=== PATIENT | female | born 1955 | race Two or more races ===

== ENCOUNTER 2017-02-05 18:32 | Inpatient (IN) | payer OTHER ==
[~2017-02-05] VITALS: Ht 162.6 cm; Wt 75.6 kg
[2017-02-05 20:13] LABS: Basophils # (auto) 0.1 uL; Basophils % (auto) 1.3 % (0.0-2.0); Eosinophils # (auto) 0 uL; Hematocrit 38.9 % (36.0-46.0); Hemoglobin 13.4 g/dL (12.2-16.2); Lymphocytes # (auto) 1.7 uL; Lymphocytes % (auto) 43.3 % (10.0-50.0); Mean Corpuscular Hgb Conc. 34.5 g/dL (32.0-36.0); Mean Corpuscular Volume 81.3 fL (80.0-100.0); Mean Platelet Volume 8.2 fL (6.9-10.8); Monocytes # (auto) 0.3 uL; Monocytes % (auto) 8.3 % (0.0-12.0); Neutrophils # (auto) 1.8 uL; Neutrophils % (auto) 46.1 % (37.0-80.0); Nucleated Red Blood Cells % 0.2 %; Platelet Count (auto) 227 10^3/uL (140-450); Red Cell Distribution Width 16.2 % (11.8-14.3)
[2017-02-05 20:31] LABS: INR 0.98 (0.9-1.15); Partial Thromboplastin Time 31.2 sec (22.64-33.71); Prothrombin Time 10.7 sec (9.37-12.3)
[2017-02-05 20:48] LABS: Albumin 4.1 g/dL (3.4-5.0); BUN/Creatinine Ratio 32.9; Bilirubin, Total 0.4 mg/dL (0.2-1.0); Calcium 8.7 mg/dL (8.5-10.1); Magnesium 2.9 mg/dL (1.6-2.6); Potassium 4.3 mmol/L (3.5-5.1); Total Protein 9.2 g/dL (6.4-8.2)
[2017-02-05 20:51] LABS: B-Type Natriuretic Peptide 13.21 pg/mL (0-100)
[2017-02-05 21:25] LABS: Temperature: 22.7 C (20.0-25.0)
[2017-02-05] MEDS ORDERED: NITROGLYCERIN 0.4 MG SL TAB SL PRN (23:15)
[2017-02-05] MEDS ORDERED: TEMAZEPAM 15 MG CAP PO PRN (23:15)
[2017-02-05] MEDS ORDERED: ACETAMINOPHEN 325 MG TAB PO PRN (23:15)
[2017-02-05] MEDS ORDERED: ONDANSETRON HCL 4 MG/2 ML VIAL IV PRN (23:15)
[2017-02-05] MEDS ORDERED: DEXTROSE (50%) 50ML SYRG IV PRN (23:15)
[2017-02-05] MEDS ORDERED: HYDROcodone-ACET 5/325MG TAB PO PRN (23:15)
[2017-02-05] MEDS ORDERED: MORPHINE SULF INJ 2 MG/ML SYRINGE 1ML IV PRN (23:15)
[2017-02-06] MEDS: ACCU-CHEK COMFORT CURVE STRIP VI SCH ×5 (00:11→22:00)
[2017-02-06] MEDS ORDERED: POTA10SO11 PO (03:05)
[2017-02-06] MEDS ORDERED: METF-370 PO (03:05)
[2017-02-06] MEDS ORDERED: LEVO50TA7 PO (03:05)
[2017-02-06] MEDS ORDERED: MAGN1TAB14 PO (03:05)
[2017-02-06] MEDS ORDERED: LISI40TA PO (03:05)
[2017-02-06] MEDS ORDERED: ISOS60TA24 PO (03:05)
[2017-02-06] MEDS ORDERED: GLIP-115 PO (03:05)
[2017-02-06] MEDS ORDERED: NIFE90TA30 PO (03:05)
[2017-02-06] MEDS ORDERED: ATEN50TA PO (03:05)
[2017-02-06 05:59] LABS: Basophils # (auto) 0 uL; Eosinophils # (auto) 0.1 uL; Eosinophils % (auto) 1.5 % (0.0-7.0); Hematocrit 37.2 % (36.0-46.0); Hemoglobin 12.3 g/dL (12.2-16.2); Lymphocytes # (auto) 1.7 uL; Lymphocytes % (auto) 49.9 % (10.0-50.0); Mean Corpuscular Volume 81.8 fL (80.0-100.0); Mean Platelet Volume 8.6 fL (6.9-10.8); Monocytes # (auto) 0.4 uL; Monocytes % (auto) 11.7 % (0.0-12.0); Neutrophils # (auto) 1.2 uL; Neutrophils % (auto) 35.9 % (37.0-80.0); Nucleated Red Blood Cells % 0.2 %; Platelet Count (auto) 218 10^3/uL (140-450); Red Cell Distribution Width 16.3 % (11.8-14.3); White Blood Cell 3.4 10^3/uL (4.4-10.8)
[2017-02-06] MEDS: InsuLIN REG 1unit/0.01ml Soln (100units/ml) SC SCH ×5 (06:00→22:00)
[2017-02-06 06:04] VITALS: BP 149/78
[2017-02-06 06:23] LABS: Albumin 3.6 g/dL (3.4-5.0); BUN/Creatinine Ratio 28.9; Bilirubin, Total 0.3 mg/dL (0.2-1.0); Calcium 8.1 mg/dL (8.5-10.1); Potassium 3.8 mmol/L (3.5-5.1); Total Protein 8.2 g/dL (6.4-8.2)
[2017-02-06] MEDS: glipiZIDE 5 MG TAB PO SCH ×2 (06:23→17:42)
[2017-02-06] MEDS: LEVOTHYROXINE SODIUM 50 MCG TAB PO SCH (06:23)
[2017-02-06 07:40] VITALS: BP 139/76
[2017-02-06] MEDS: MAGNESIUM OXIDE 400 MG TAB PO SCH (09:46)
[2017-02-06] MEDS: NIFEdipine ER 30 MG TAB PO SCH (09:47)
[2017-02-06] MEDS: ATENOLOL 50 MG TAB PO SCH (09:50)
[2017-02-06] MEDS: FAMOTIDINE 20 MG TAB PO SCH ×2 (09:51→22:30)
[2017-02-06] MEDS: LISINOPRIL 20 MG TAB PO SCH (09:51)
[2017-02-06] MEDS: ENOXAPARIN SOD 40 MG/0.4 ML SYRINGE SC SCH (09:51)
[2017-02-06 12:28] VITALS: BP 127/71
[2017-02-06] MEDS ORDERED: DEXTROSE (50%) 50ML SYRG IV PRN (14:00)
[2017-02-06 17:11] VITALS: BP 149/73
[2017-02-06 22:00] VITALS: BP 123/68
[2017-02-07 05:00] VITALS: BP 122/77
[2017-02-07] MEDS: ACCU-CHEK COMFORT CURVE STRIP VI SCH ×4 (06:30→21:42)
[2017-02-07] MEDS: InsuLIN REG 1unit/0.01ml Soln (100units/ml) SC SCH ×4 (06:30→21:42)
[2017-02-07] MEDS: LEVOTHYROXINE SODIUM 50 MCG TAB PO SCH (06:31)
[2017-02-07] MEDS: glipiZIDE 5 MG TAB PO SCH ×2 (06:31→17:42)
[2017-02-07 08:00] VITALS: BP 122/76
[2017-02-07 08:46] VITALS: BP 125/66
[2017-02-07] MEDS ORDERED: ADENOSINE 64 MG in GIVE UN-DILUTED 0 ML IV ONE (09:00)
[2017-02-07 13:00] VITALS: BP 128/82
[2017-02-07] MEDS: FAMOTIDINE 20 MG TAB PO SCH ×2 (15:54→21:42)
[2017-02-07] MEDS: LISINOPRIL 20 MG TAB PO SCH (15:55)
[2017-02-07] MEDS: ATENOLOL 50 MG TAB PO SCH (15:56)
[2017-02-07] MEDS: MAGNESIUM OXIDE 400 MG TAB PO SCH (15:56)
[2017-02-07] MEDS: NIFEdipine ER 30 MG TAB PO SCH (15:57)
[2017-02-07] MEDS: ENOXAPARIN SOD 40 MG/0.4 ML SYRINGE SC SCH (15:59)
[2017-02-07 17:00] VITALS: BP 127/66
[2017-02-07 22:00] VITALS: BP 133/83
[2017-02-08 05:00] VITALS: BP 146/82
[2017-02-08] MEDS: glipiZIDE 5 MG TAB PO SCH ×2 (06:23→18:30)
[2017-02-08] MEDS: LEVOTHYROXINE SODIUM 50 MCG TAB PO SCH (06:23)
[2017-02-08] MEDS: InsuLIN REG 1unit/0.01ml Soln (100units/ml) SC SCH ×4 (06:24→21:56)
[2017-02-08] MEDS: ACCU-CHEK COMFORT CURVE STRIP VI SCH ×4 (06:25→21:56)
[2017-02-08] MEDS ORDERED: HEPARIN IN NS 1000Units/500mL 0 ML ONE (07:13)
[2017-02-08] MEDS ORDERED: LIDOCAINE 2%HCL (LOCAL ANESTH.) INJ 20ML MDV ONE ×2 (07:13→11:41)
[2017-02-08] MEDS ORDERED: IOHEXOL 350 MG/ML 100ML IJ ONE ×2 (07:13→11:41)
[2017-02-08 08:00] VITALS: BP 152/78
[2017-02-08 08:48] VITALS: BP 152/78
[2017-02-08] MEDS: MAGNESIUM OXIDE 400 MG TAB PO SCH (09:57)
[2017-02-08] MEDS: FAMOTIDINE 20 MG TAB PO SCH ×2 (09:57→21:56)
[2017-02-08] MEDS: NIFEdipine ER 30 MG TAB PO SCH (09:58)
[2017-02-08] MEDS: ATENOLOL 50 MG TAB PO SCH ×2 (09:59→10:00)
[2017-02-08] MEDS: LISINOPRIL 20 MG TAB PO SCH (09:59)
[2017-02-08] MEDS: ENOXAPARIN SOD 40 MG/0.4 ML SYRINGE SC SCH (10:00)
[2017-02-08] MEDS ORDERED: fentaNYL CITRATE 100 MCG/2 ML VL ONE (13:49)
[2017-02-08] MEDS ORDERED: MIDAZOLAM HCL 1MG/1ML-2 ML VIAL ONE (13:49)
[2017-02-08] MEDS ORDERED: SODIUM CHL 0.9% 0 ML ONE (13:50)
[2017-02-08] MEDS ORDERED: ANGIOMAX 250 MG VIAL IV ONE (13:50)
[2017-02-08] MEDS ORDERED: ONDANSETRON HCL 4 MG/2 ML VIAL ONE (13:59)
[2017-02-08 14:03] VITALS: BP 144/79
[2017-02-08 18:14] VITALS: BP 135/71
[2017-02-08 22:00] VITALS: BP 121/73
[2017-02-09 04:57] VITALS: BP 138/77
[2017-02-09] MEDS: glipiZIDE 5 MG TAB PO SCH ×2 (06:16→18:00)
[2017-02-09] MEDS: ACCU-CHEK COMFORT CURVE STRIP VI SCH ×3 (06:18→17:00)
[2017-02-09] MEDS: InsuLIN REG 1unit/0.01ml Soln (100units/ml) SC SCH ×3 (06:18→17:00)
[2017-02-09] MEDS: LEVOTHYROXINE SODIUM 50 MCG TAB PO SCH (06:18)
[2017-02-09 07:22] VITALS: BP 148/89
[2017-02-09] MEDS: ENOXAPARIN SOD 40 MG/0.4 ML SYRINGE SC SCH (09:55)
[2017-02-09] MEDS: FAMOTIDINE 20 MG TAB PO SCH (09:56)
[2017-02-09] MEDS: LISINOPRIL 20 MG TAB PO SCH (09:56)
[2017-02-09] MEDS: MAGNESIUM OXIDE 400 MG TAB PO SCH (09:56)
[2017-02-09] MEDS: NIFEdipine ER 30 MG TAB PO SCH (09:57)
[2017-02-09 11:45] VITALS: BP 130/74
[2017-02-09 16:20] VITALS: BP 151/80
[2017-02-09 18:20] VITALS: BP 132/78
== END 2017-02-09 18:30 | DRG 287 ==
LOC: ER 18:39 → TELE 18:40 → TELE-WESTW 02-06 01:24
PROVIDERS: ADMIT Nurse Practitioner; ATTEND Internal Medicine
PROC: 4A023N7 Measurement of Cardiac Sampling and Pressure, Left Heart, Percutaneous Approach (ICD-10-PCS; principal; 2017-02-08)
PROC: B2151ZZ Fluoroscopy of Left Heart using Low Osmolar Contrast (ICD-10-PCS; 2017-02-08)
PROC: B2111ZZ Fluoroscopy of Multiple Coronary Arteries using Low Osmolar Contrast (ICD-10-PCS; 2017-02-08)
PROC: B41J1ZZ Fluoroscopy of Other Lower Arteries using Low Osmolar Contrast (ICD-10-PCS; 2017-02-08)
DX: R07.89 Other chest pain (principal); I24.9 Acute ischemic heart disease, unspecified; I27.2 Other secondary pulmonary hypertension; I11.9 Hypertensive heart disease without heart failure; I48.2 Chronic atrial fibrillation; E03.9 Hypothyroidism, unspecified; I48.0 Paroxysmal atrial fibrillation; E05.00 Thyrotoxicosis with diffuse goiter without thyrotoxic crisis or storm; E11.9 Type 2 diabetes mellitus without complications; I25.2 Old myocardial infarction; Z83.3 Family history of diabetes mellitus; Z82.49 Family history of ischemic heart disease and other diseases of the circulatory system; Z90.710 Acquired absence of both cervix and uterus; Z90.49 Acquired absence of other specified parts of digestive tract; Z88.8 Allergy status to other drugs, medicaments and biological substances
CPT/HCPCS: 36415; 71020; 78452; 80053; 80061; 82962; 83036; 83735; 83880; 84443; 84484; 85025; 85379; 85610; 85730; 87081; 93005; 93017; 93306; 94761; 99152; 99153; J0153; J2250; J2405

== ENCOUNTER 2017-08-11 17:25 | Inpatient (IN) | payer OTHER ==
[~2017-08-11] VITALS: Ht 162.6 cm; Wt 76.4 kg
[~2017-08-11 17:25] MED LIST: ATEN50TA PO; GLIP-115 PO; ISOS60TA24 PO; LEVO50TA7 PO; LISI40TA PO; MAGN1TAB14 PO; METF-370 PO; NIFE90TA30 PO; POTA10SO11 PO
[2017-08-11 19:11] LABS: Basophils # (auto) 0 uL; Basophils % (auto) 0.7 % (0.0-2.0); Eosinophils # (auto) 0 uL; Lymphocytes # (auto) 1.8 uL; White Blood Cell 3.9 10^3/uL (4.4-10.8)
[2017-08-11 19:12] LABS: Eosinophils % (auto) 0.6 % (0.0-7.0); Hematocrit 38.4 % (36.0-46.0); Hemoglobin 12.8 g/dL (12.2-16.2); Lymphocytes % (auto) 46.8 % (10.0-50.0); Mean Corpuscular Hgb Conc. 33.3 g/dL (32.0-36.0); Mean Corpuscular Volume 81.1 fL (80.0-100.0); Monocytes # (auto) 0.4 uL; Monocytes % (auto) 9.3 % (0.0-12.0); Neutrophils # (auto) 1.7 uL; Neutrophils % (auto) 42.6 % (37.0-80.0); Nucleated Red Blood Cells % 0.4 %; Platelet Count (auto) 236 10^3/uL (140-450); Red Blood Cells 4.74 10^6/uL (4.0-5.20); Red Cell Distribution Width 16.2 % (11.8-14.3)
[2017-08-11 19:25] LABS: Alanine Aminotransferase 34 U/L (13-56); Albumin 4.1 g/dL (3.4-5.0); Alkaline Phosphatase 80 U/L (45-117); Anion Gap 8 (5-15); Aspartate Aminotransferase 27 U/L (15-37); BUN/Creatinine Ratio 20.7; Bilirubin, Total 0.3 mg/dL (0.2-1.0); Blood Urea Nitrogen 18 mg/dL (7-18); Calcium 8.4 mg/dL (8.5-10.1); Carbon Dioxide 26 mmol/L (21-32); Chloride 107 mmol/L (98-107); GFR African American 85 mL/min; GFR Non-African American 70 mL/min; Glucose 104 mg/dL (74-106); Magnesium 2.6 mg/dL (1.6-2.6); Potassium 3.5 mmol/L (3.5-5.1); Sodium 141 mmol/L (136-145); Total Protein 8.9 g/dL (6.4-8.2)
[2017-08-12 01:41] LABS: Urine Bacteria NONE SEEN /hpf (None Seen); Urine Blood Negative /uL (Negative); Urine WBC <1 /hpf (0 - 5)
[2017-08-12 01:52] LABS: INR 1.08 (0.9-1.15); Partial Thromboplastin Time 32.7 sec (22.64-33.71); Prothrombin Time 11.8 sec (9.37-12.3)
[2017-08-12 01:56] LABS: Alcohol, Urine < 3.0 mg/dL (0-5); Amphetamine Screen, Urine NEGATIVE (NEGATIVE); Barbiturate Scree,Urine NEGATIVE (NEGATIVE); Benzodiazephine Screen, Urine NEGATIVE (NEGATIVE); Cannabinoid Screen, Urine NEGATIVE (NEGATIVE); Cocaine Screen, Urine NEGATIVE (NEGATIVE); Opiate Scree,Urine NEGATIVE (NEGATIVE); Phencyclidine Screen, Urine NEGATIVE (NEGATIVE)
[2017-08-12] MEDS ORDERED: NITROGLYCERIN 0.4 MG SL TAB SL PRN (04:45)
[2017-08-12] MEDS ORDERED: MORPHINE SULFATE 4 MG/ML SYR/VIAL IV PRN (04:45)
[2017-08-12 08:46] VITALS: BP 142/61
[2017-08-12] MEDS: ASPirin-EC 81 mg tab PO SCH (10:03)
[2017-08-12] MEDS: NITROGLYCERIN 2% OINT 1GM PKG TD SCH (10:04)
[2017-08-12] MEDS ORDERED: traMADol HCL 50 MG TAB PO PRN (12:30)
[2017-08-12 12:43] VITALS: BP 130/59
[2017-08-12] MEDS: METOPROLOL SUCCINATE XL 50 MG TAB PO SCH (14:22)
[2017-08-12 16:28] VITALS: BP 146/80
[2017-08-12] MEDS: NIFEdipine ER 30 MG TAB PO SCH (17:22)
[2017-08-12 20:00] VITALS: BP 148/73
[2017-08-12 21:30] VITALS: BP 148/73
[2017-08-13] MEDS ORDERED: IBUPROFEN 800 MG TAB PO PRN (01:30)
[2017-08-13 05:00] VITALS: BP 137/65
[2017-08-13 08:00] VITALS: BP 136/78
[2017-08-13 08:23] VITALS: BP 136/78
[2017-08-13] MEDS ORDERED: ADENOSINE 63 MG in GIVE UN-DILUTED 0 ML IV STA (08:28)
[2017-08-13] MEDS: METOPROLOL SUCCINATE XL 50 MG TAB PO SCH (10:00)
[2017-08-13 10:59] VITALS: BP 139/85
[2017-08-13] MEDS: NIFEdipine ER 30 MG TAB PO SCH (12:58)
[2017-08-13] MEDS: ASPirin-EC 81 mg tab PO SCH (12:58)
[2017-08-13] MEDS: ISOSORBIDE MONONITRATE 60 MG TAB PO SCH (12:58)
[2017-08-13] MEDS: NITROGLYCERIN 2% OINT 1GM PKG TD SCH (12:59)
[2017-08-13 13:00] VITALS: BP 149/83
[2017-08-13 17:14] VITALS: BP 132/74
[2017-08-14 05:13] VITALS: BP 126/65
[2017-08-14 08:00] VITALS: BP 118/66
[2017-08-14 08:40] VITALS: BP 118/66
[2017-08-14] MEDS: NIFEdipine ER 30 MG TAB PO SCH (09:36)
[2017-08-14] MEDS: METOPROLOL SUCCINATE XL 50 MG TAB PO SCH ×2 (09:37→09:52)
[2017-08-14] MEDS: NITROGLYCERIN 2% OINT 1GM PKG TD SCH (09:39)
[2017-08-14] MEDS: ISOSORBIDE MONONITRATE 60 MG TAB PO SCH (09:39)
[2017-08-14] MEDS: ASPirin-EC 81 mg tab PO SCH (09:39)
[2017-08-14 11:25] VITALS: BP 117/61
== END 2017-08-14 18:00 | DRG 303 ==
LOC: EDBD 17:25 → ER 17:25 → EDUNIT# 17:25 → TELE 17:26 → EEVIPCON 17:26 → TELE-EAST 08-12 09:57
PROVIDERS: ADMIT Internal Medicine; ATTEND Internal Medicine
DX: I25.119 Atherosclerotic heart disease of native coronary artery with unspecified angina pectoris (principal); I48.91 Unspecified atrial fibrillation; E03.9 Hypothyroidism, unspecified; E11.9 Type 2 diabetes mellitus without complications; I10 Essential (primary) hypertension; Z82.49 Family history of ischemic heart disease and other diseases of the circulatory system; Z83.3 Family history of diabetes mellitus; Z90.710 Acquired absence of both cervix and uterus; Z90.49 Acquired absence of other specified parts of digestive tract; I25.2 Old myocardial infarction
CPT/HCPCS: 36415; 71046; 80053; 80307; 81001; 82962; 83735; 84484; 85025; 85379; 85610; 85730; 93005; 93017; J0153

== ENCOUNTER 2017-12-10 23:06 | Emergency (ER) | payer OTHER ==
[~2017-12-10] VITALS: Ht 162.6 cm; Wt 63.5 kg
[~2017-12-10 23:06] MED LIST changes: -METF-370 PO
[2017-12-10 23:24] VITALS: BP 105/53
[2017-12-10 23:53] LABS: Basophils # (auto) 0 uL; Basophils % (auto) 0.8 % (0.0-2.0); Eosinophils # (auto) 0.1 uL; Eosinophils % (auto) 1.8 % (0.0-7.0); Hematocrit 35.5 % (36.0-46.0); Hemoglobin 11.9 g/dL (12.2-16.2); Lymphocytes % (auto) 43.9 % (10.0-50.0); Mean Corpuscular Hemoglobin 27.2 pg (28.0-32.0); Mean Corpuscular Hgb Conc. 33.4 g/dL (32.0-36.0); Mean Corpuscular Volume 81.4 fL (80.0-100.0); Monocytes # (auto) 0.5 uL; Monocytes % (auto) 10.9 % (0.0-12.0); Neutrophils # (auto) 1.9 uL; Neutrophils % (auto) 42.6 % (37.0-80.0); Nucleated Red Blood Cells % 0.2 %; Platelet Count (auto) 208 10^3/uL (140-450); Red Blood Cells 4.36 10^6/uL (4.0-5.20); White Blood Cell 4.5 10^3/uL (4.4-10.8)
[2017-12-11 00:06] LABS: INR 1.05 (0.9-1.15); Prothrombin Time 11.2 sec (9.27-12.13)
[2017-12-11 00:09] LABS: Albumin 3.7 g/dL (3.4-5.0); BUN/Creatinine Ratio 29.3; Calcium 8.1 mg/dL (8.5-10.1); Magnesium 2.5 mg/dL (1.6-2.6); Potassium 3.9 mmol/L (3.5-5.1)
[2017-12-11 00:14] LABS: Bilirubin, Total 0.2 mg/dL (0.2-1.0); Total Protein 8.1 g/dL (6.4-8.2)
== END 2017-12-11 03:00 | disposition left against medical advice (07) ==
LOC: EDBD 23:06 → ER 23:12 → EEVIPCON 23:12 → ER 12-11 03:00
DX: R07.9 Chest pain, unspecified (principal); Z53.21 Procedure and treatment not carried out due to patient leaving prior to being seen by health care provider
CPT/HCPCS: 36415; 71045; 80053; 83735; 83880; 84443; 84484; 85025; 85610; 85730; 93005

== ENCOUNTER → 2017-12-12 | Outpatient (CLI) | payer OTHER ==
[2017-12-12 08:29] LABS: Potassium 4.3 mmol/L (3.5-5.1); Sodium 138 mmol/L (136-145)
[2017-12-12 08:30] LABS: Alanine Aminotransferase 36 U/L (13-56); Alkaline Phosphatase 71 U/L (45-117); Anion Gap 9 (5-15); Aspartate Aminotransferase 26 U/L (15-37); BUN/Creatinine Ratio 26.7; Bilirubin, Total 0.2 mg/dL (0.2-1.0); Blood Urea Nitrogen 31 mg/dL (7-18); Calcium 8.4 mg/dL (8.5-10.1); Carbon Dioxide 23 mmol/L (21-32); Chloride 106 mmol/L (98-107); Cholesterol 180 mg/dL (< 200); GFR African American 61 mL/min; GFR Non-African American 50 mL/min; Glucose 88 mg/dL (74-106); Phosphorus 3.8 mg/dL (2.5-4.90); Total Protein 8.4 g/dL (6.4-8.2); Triglycerides 136 mg/dL (< 150)
[2017-12-12 08:31] LABS: Creatine Kinase IFCC 166 U/L (26-192); HDL Cholesterol 65 mg/dL (40-59); LDL Cholesterol 100 mg/dL (< 100); Magnesium 2.9 mg/dL (1.6-2.6)
[2017-12-12 08:37] LABS: Basophils # (auto) 0 uL; Basophils % (auto) 0.4 % (0.0-2.0); Eosinophils # (auto) 0.1 uL; Eosinophils % (auto) 2.2 % (0.0-7.0); Hematocrit 35.6 % (36.0-46.0); Hemoglobin 11.8 g/dL (12.2-16.2); Lymphocytes # (auto) 1.6 uL; Lymphocytes % (auto) 48.8 % (10.0-50.0); Mean Corpuscular Hgb Conc. 33.2 g/dL (32.0-36.0); Mean Corpuscular Volume 81.3 fL (80.0-100.0); Monocytes # (auto) 0.3 uL; Neutrophils # (auto) 1.2 uL; Neutrophils % (auto) 38.6 % (37.0-80.0); Nucleated Red Blood Cells % 0.1 %; Platelet Count (auto) 218 10^3/uL (140-450); Red Blood Cells 4.38 10^6/uL (4.0-5.20); Red Cell Distribution Width 15.9 % (11.8-14.3); White Blood Cell 3.2 10^3/uL (4.4-10.8)
[2017-12-12 08:38] LABS: Prothrombin Time 10.7 sec (9.27-12.13)
[2017-12-12 08:39] LABS: Partial Thromboplastin Time 29.7 sec (23.78-33.04)
== END | disposition home or self-care (01) ==
LOC: LAB 06:51
DX: R07.9 Chest pain, unspecified (principal)
CPT/HCPCS: 36415; 80053; 80061; 82550; 82553; 83735; 83880; 84100; 84436; 84443; 84480; 84484; 85025; 85379; 85610; 85730

== ENCOUNTER 2018-04-23 22:37 | Emergency (ER) | payer OTHER ==
[~2018-04-23] VITALS: Ht 165.1 cm; Wt 61.2 kg
[~2018-04-23 22:37] MED LIST changes: +ATEN-60 PO; -ATEN50TA PO; +FERR-20 PO; +FOLI1TAB6 PO; +FURO20TA PO; -GLIP-115 PO; +GLIP2.5T28 PO; +IBUP800T24 PO; +LEVO25TA6 PO; -LEVO50TA7 PO; +LISI10TA6 PO; -LISI40TA PO; +METF-370 PO; +NIF30XLT PO; -NIFE90TA30 PO; +NITR0.4S29 SL; +POTA-180 PO; -POTA10SO11 PO
[2018-04-23 23:35] LABS: Basophils # (auto) 0 uL; Basophils % (auto) 1.1 % (0.0-2.0); Eosinophils # (auto) 0 uL; Eosinophils % (auto) 0.5 % (0.0-7.0); Hematocrit 38.4 % (36.0-46.0); Hemoglobin 12.6 g/dL (12.2-16.2); Lymphocytes # (auto) 2.2 uL; Lymphocytes % (auto) 49.4 % (10.0-50.0); Mean Corpuscular Hemoglobin 27.1 pg (28.0-32.0); Mean Corpuscular Hgb Conc. 32.8 g/dL (32.0-36.0); Mean Corpuscular Volume 82.7 fL (80.0-100.0); Monocytes # (auto) 0.3 uL; Monocytes % (auto) 7.1 % (0.0-12.0); Neutrophils # (auto) 1.9 uL; Neutrophils % (auto) 41.9 % (37.0-80.0); Nucleated Red Blood Cells % 0.2 %; Platelet Count (auto) 220 10^3/uL (140-450); Red Blood Cells 4.64 10^6/uL (4.0-5.20); White Blood Cell 4.4 10^3/uL (4.4-10.8)
[2018-04-23 23:36] LABS: Urine Bacteria NONE SEEN /hpf (None Seen); Urine Blood Negative /uL (Negative); Urine Mucus FEW (None Seen); Urine Specific Gravity 1.004 (1.001-1.035); Urine WBC <1 /hpf (0 - 5)
[2018-04-23 23:46] LABS: BUN/Creatinine Ratio 25.9; Calcium 8.5 mg/dL (8.5-10.1); Magnesium 2.2 mg/dL (1.6-2.6); Potassium 3.1 mmol/L (3.5-5.1)
[2018-04-23 23:51] LABS: INR 0.96 (0.9-1.15); Partial Thromboplastin Time 30.6 sec (23.78-33.04); Prothrombin Time 10.3 sec (9.27-12.13)
[2018-04-23 23:54] LABS: Bilirubin, Total 0.3 mg/dL (0.2-1.0); Total Protein 8.9 g/dL (6.4-8.2)
[2018-04-24] MEDS ORDERED: POTASSIUM CHL 20 Meq TABLET PO ONE (03:00)
[2018-04-24 03:04] VITALS: BP 148/67
== END 2018-04-24 03:34 | disposition home or self-care (01) ==
LOC: EDBD 22:37 → EDUNIT# 22:38 → ER 22:42
DX: R00.2 Palpitations (principal); E87.6 Hypokalemia; E86.0 Dehydration; E03.9 Hypothyroidism, unspecified; I48.91 Unspecified atrial fibrillation; E11.9 Type 2 diabetes mellitus without complications; I11.0 Hypertensive heart disease with heart failure; I50.9 Heart failure, unspecified; E07.9 Disorder of thyroid, unspecified; I25.2 Old myocardial infarction; Z90.710 Acquired absence of both cervix and uterus; Z88.5 Allergy status to narcotic agent; Z88.8 Allergy status to other drugs, medicaments and biological substances; Z79.84 Long term (current) use of oral hypoglycemic drugs; Z79.899 Other long term (current) drug therapy; Z95.0 Presence of cardiac pacemaker
CPT/HCPCS: 36415; 71045; 80053; 81001; 83735; 83880; 84443; 84484; 85025; 85610; 85730; 93005; 94761

== ENCOUNTER 2018-08-09 16:38 | Inpatient (IN) | payer OTHER ==
[~2018-08-09] VITALS: Ht 162.6 cm; Wt 77.6 kg
[~2018-08-09 16:38] MED LIST changes: -IBUP800T24 PO
[2018-08-09] MEDS ORDERED: SODIUM CHLORIDE 0.9% 1,000 ML IV ONE (16:55)
[2018-08-09] MEDS ORDERED: ASPirin 81 mg TAB PO ONE (17:00)
[2018-08-09 19:22] LABS: INR 0.94 (0.9-1.15); Partial Thromboplastin Time 30.9 sec (23.78-33.04); Prothrombin Time 10.1 sec (9.27-12.13)
[2018-08-09 19:24] LABS: Albumin 3.8 g/dL (3.4-5.0); Basophils # (auto) 0 uL; Basophils % (auto) 0.6 % (0.0-2.0); Calcium 8.5 mg/dL (8.5-10.1); Eosinophils # (auto) 0 uL; Eosinophils % (auto) 0.5 % (0.0-7.0); Hematocrit 37.3 % (36.0-46.0); Hemoglobin 12.2 g/dL (12.2-16.2); Lymphocytes # (auto) 1.7 uL; Magnesium 2.4 mg/dL (1.6-2.6); Mean Corpuscular Hemoglobin 26.7 pg (28.0-32.0); Mean Corpuscular Hgb Conc. 32.8 g/dL (32.0-36.0); Mean Corpuscular Volume 81.2 fL (80.0-100.0); Monocytes # (auto) 0.4 uL; Monocytes % (auto) 9.3 % (0.0-12.0); Neutrophils # (auto) 1.7 uL; Neutrophils % (auto) 45.6 % (37.0-80.0); Nucleated Red Blood Cells % 0.1 %; Platelet Count (auto) 225 10^3/uL (140-450); Potassium 3.2 mmol/L (3.5-5.1); Red Blood Cells 4.59 10^6/uL (4.0-5.20); Red Cell Distribution Width 16.5 % (11.8-14.3); White Blood Cell 3.8 10^3/uL (4.4-10.8)
[2018-08-09 19:29] LABS: BUN/Creatinine Ratio 19.1; Bilirubin, Total 0.3 mg/dL (0.2-1.0); Total Protein 8.7 g/dL (6.4-8.2)
[2018-08-09 21:17] LABS: Urine Bacteria FEW /hpf (None Seen); Urine Blood Negative /uL (Negative); Urine Specific Gravity 1.006 (1.001-1.035); Urine WBC 1 /hpf (0 - 5)
[2018-08-10] VITALS (7 sets, daily range): BP systolic 139–157; BP diastolic 72–92
[2018-08-10] MEDS ORDERED: MORPHINE SULF INJ 2 MG/ML SYRINGE 1ML IV PRN (00:45)
[2018-08-10] MEDS ORDERED: NITROGLYCERIN 0.4 MG SL TAB SL PRN (00:45)
--- NOTE | 2018-08-10 04:00 | NUR ---
AXOX4, RESTING IN BED. RECEIVED PATIENT WITHOUT CHEST PAIN 0/10, BUT SHE REPORTS BILATERAL KNEE PAIN OF 5. PATIENT NEEDS ASSISTANCE TO USE THE BEDSIDE COMMODE. BED LOCKED IN LOWEST POSITION, SIDE RAILS UP X2, CALL LIGHT WITHIN REACH, AND ALARM BED ON FOR PATIENT SAFETY. PATIENT HAS IV 20 GAUGE ON HER LEFT ARM, IT WAS INSERTED ON 08/09/2018 INTACT, SKIN IS INTACT, NO OPEN WOUNDS, LBM: 08/09/2018. WILL CONTINUE TO MONITOR.
--- NOTE | 2018-08-10 04:00 | NUR ---
CALLED TO DR. FUENTES AND MADE A REQUEST FOR MEDICATION ORDERS FOR PATIENT 237 A. DID NOT RECEIVE RETURN PAGE.
--- NOTE | 2018-08-10 06:25 | NUR ---
CALLED DR. FUENTES TO REQUEST MEDICATION ORDERS FOR PATIENT 237 A. DID NOT RECEIVED ANSWER BACK.
--- NOTE | 2018-08-10 08:00 | NUR ---
ASSESSMENT NOTE PT IS ALERT ORIENTED X4, RESTING IN BED COMFORTABLY. 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
--- NOTE | 2018-08-10 13:30 | NUR ---
DR FUENTES AT BED SIDE FOLLOWING UP ON PT.
--- NOTE | 2018-08-10 14:15 | NUR ---
[facility] TO BRING A WALKER FOR PT.
[2018-08-10 16:19] LABS: BUN/Creatinine Ratio 15.9; Calcium 8.5 mg/dL (8.5-10.1); Potassium 3.4 mmol/L (3.5-5.1)
--- NOTE | 2018-08-10 16:36 | NUR ---
PAGE DR FUENTES PT'S BLOOD PRESSURE IS 157/[address] FUENTES IN ORDER TO START THE SCHEDULE DOSE TOMORROW FOR TODAY MESSAGE LEFT WITH MARGE
[2018-08-10] MEDS ORDERED: LISINOPRIL 10 MG TAB PO ONE (17:00)
[2018-08-10] MEDS ORDERED: NIFEdipine ER 30 MG TAB PO ONE (17:00)
[2018-08-10] MEDS: metFORMIN HYDROCHLORIDE 500 MG TAB PO SCH (18:00)
--- NOTE | 2018-08-10 18:21 | NUR ---
PT CONTINUE STABLE, USE THE BED SIDE COMMODE NEEDED, USE THE FRONT WHEEL WALKER NEEDED, CONTINUE MONITORING.
--- NOTE | 2018-08-10 19:30 | NUR ---
A&OX4, RESTING ON BED. PATIENT WAS FOUND ON HER BED. NO REPORT PAIN AT THIS TIME. PATIENT NEEDS MEDIUM ASSISTANCE TO USE BEDSIDE COMMODE. BED LOCKED IN LOWEST POSITION, SIDE RAILS UP X2, CALL LIGHT WITHIN REACH, AND BED ALARM ON FOR PATIENT SAFETY. NO OPEN WOUNDS PRESENT. WILL CONTINUE TO MONITOR.
--- NOTE | 2018-08-10 19:45 | NUR ---
Dr. Christopher Burris at bedside for cardio evaluation.
[2018-08-10] MEDS ORDERED: DEXTROSE (50%) 50ML SYRG IV PRN (20:15)
[2018-08-10] MEDS: ACCU-CHEK COMFORT CURVE STRIP VI SCH (21:10)
[2018-08-10] MEDS: InsuLIN REG 1unit/0.01ml Soln (100units/ml) SC SCH (22:00)
[2018-08-11 05:00] VITALS: BP 143/88
[2018-08-11] MEDS ORDERED: LEVOTHYROXINE SODIUM 25 MCG TAB PO SCH (07:00)
[2018-08-11] MEDS: InsuLIN REG 1unit/0.01ml Soln (100units/ml) SC SCH ×2 (07:00→11:30)
[2018-08-11] MEDS: metFORMIN HYDROCHLORIDE 500 MG TAB PO SCH (07:00)
[2018-08-11] MEDS: ACCU-CHEK COMFORT CURVE STRIP VI SCH ×2 (07:00→11:30)
[2018-08-11 08:00] VITALS: BP 132/83
--- NOTE | 2018-08-11 08:00 | NUR ---
RECEIVED PT RESTING COMFORTABLY, CALL LIGHT WITHIN REACH, GUARD AT BED SIDE, PT DENIES CHEST PAIN AT THIS TIME, WILL CONTINUE TO MONITOR PT.
--- NOTE | 2018-08-11 08:35 | NUR ---
CALLED [facility] AT [phone] FOR PT'S PACEMAKER TO BE INTERROGATED.
[2018-08-11 08:42] VITALS: BP 132/83
[2018-08-11] MEDS ORDERED: NIFEdipine ER 30 MG TAB PO SCH (10:00)
[2018-08-11] MEDS ORDERED: LISINOPRIL 10 MG TAB PO SCH (10:00)
[2018-08-11] MEDS ORDERED: ENOXAPARIN SOD 30 MG/0.3 ML SYRINGE SC SCH (10:00)
[2018-08-11 10:49] LABS: Free T3 5.69 pg/mL (2.3-4.2); Free T4 (Free Thyroxine) 0.87 ng/dL (0.89-1.76)
[2018-08-11 13:00] VITALS: BP 127/66
[2018-08-11] MEDS ORDERED: DIL120C PO (13:02)
[2018-08-11 14:46] VITALS: BP 127/66
[2018-08-11] MEDS ORDERED: INFLUENZA QUAD 2018-2019 0.5 ML SYRG IM ONE (15:15)
[2018-08-11] MEDS ORDERED: PNEUMOCOCCAL VACC POLYS 25 MCG/0.5 ML VIAL IM ONE (15:15)
--- NOTE | 2018-08-11 16:05 | NUR ---
Discharge instructions given as ordered. Encourage to follow up with PMD as instructed. All questions and concerns addressed. Patient verbalized understanding. Discharge instructions paperwork and prescription given to guard. Medication reconciliation form completed and copy given to patient. No home medications held in Pharmacy, and needed vaccines given. IV removed with catheter intact, pressure dressing applied. Telemetry unit returned to [facility].
--- NOTE | 2018-08-11 16:20 | NUR ---
Patient taken to vehicle via wheelchair with all personal belongings, accompanied by staff and guard dance hall member. No distress noted at time of departure.
[2018-08-12] MEDS ORDERED: DILTIAZEM HCL 120MG ER CAP PO SCH (10:00)
== END 2018-08-11 16:15 | DRG 310 ==
LOC: EDBD 16:38 → EEVIPCON 16:43 → ER 16:43 → TELE 08-10 00:42 → TELE-EAST 08-10 01:57
PROVIDERS: ADMIT Nurse Practitioner Family; ATTEND Internal Medicine
PROC: 4B02XSZ Measurement of Cardiac Pacemaker, External Approach (ICD-10-PCS; principal; 2018-08-11)
DX: I47.1 Supraventricular tachycardia (principal); I47.2 Ventricular tachycardia; I48.91 Unspecified atrial fibrillation; E03.9 Hypothyroidism, unspecified; E11.9 Type 2 diabetes mellitus without complications; I11.0 Hypertensive heart disease with heart failure; R55 Syncope and collapse; I27.20 Pulmonary hypertension, unspecified; I50.9 Heart failure, unspecified; R07.89 Other chest pain; Z82.49 Family history of ischemic heart disease and other diseases of the circulatory system; Z83.3 Family history of diabetes mellitus; Z90.710 Acquired absence of both cervix and uterus; Z95.0 Presence of cardiac pacemaker; Z88.8 Allergy status to other drugs, medicaments and biological substances; Z88.5 Allergy status to narcotic agent; Z90.49 Acquired absence of other specified parts of digestive tract; Z23 Encounter for immunization
CPT/HCPCS: 36415; 71046; 80048; 80053; 81001; 82962; 83735; 83880; 84439; 84443; 84481; 84484; 85025; 85379; 85610; 85730; 90674; 93005; 94761; 96360; G0378

== ENCOUNTER → 2018-09-17 | Outpatient (CLI) | payer OTHER ==
[~2018-09-17] MED LIST changes: +DIL120C PO
== END | disposition home or self-care (01) ==
LOC: US 10:41
DX: E04.2 Nontoxic multinodular goiter (principal)
CPT/HCPCS: 76536

== ENCOUNTER 2018-11-01 21:10 | Emergency (ER) | payer OTHER ==
[~2018-11-01] VITALS: Ht 165.1 cm; Wt 63.5 kg
[2018-11-01 21:42] LABS: Urine Bacteria NONE SEEN /hpf (None Seen); Urine Blood 2+ /uL (Negative); Urine Mucus FEW (None Seen); Urine Specific Gravity 1.002 (1.001-1.035); Urine WBC 1 /hpf (0 - 5)
[2018-11-01 21:42] LABS: Basophils # (auto) 0 uL; Eosinophils # (auto) 0 uL; Eosinophils % (auto) 0.4 % (0.0-7.0); Monocytes # (auto) 0.5 uL
[2018-11-01 21:44] LABS: Basophils % (auto) 0.9 % (0.0-2.0); Hematocrit 37.8 % (36.0-46.0); Hemoglobin 12.3 g/dL (12.2-16.2); Lymphocytes # (auto) 1.9 uL; Lymphocytes % (auto) 37.1 % (10.0-50.0); Mean Corpuscular Hemoglobin 26.5 pg (28.0-32.0); Mean Corpuscular Hgb Conc. 32.7 g/dL (32.0-36.0); Mean Corpuscular Volume 81.2 fL (80.0-100.0); Monocytes % (auto) 10.4 % (0.0-12.0); Neutrophils # (auto) 2.7 uL; Neutrophils % (auto) 51.2 % (37.0-80.0); Nucleated Red Blood Cells % 0.2 %; Platelet Count (auto) 229 10^3/uL (140-450); Red Blood Cells 4.65 10^6/uL (4.0-5.20); Red Cell Distribution Width 15.3 % (11.8-14.3); White Blood Cell 5.2 10^3/uL (4.4-10.8)
[2018-11-01 22:02] LABS: Calcium 9.1 mg/dL (8.5-10.1); Potassium 3.1 mmol/L (3.5-5.1)
[2018-11-01 22:06] LABS: BUN/Creatinine Ratio 21.8; Bilirubin, Total 0.3 mg/dL (0.2-1.0); Total Protein 8.7 g/dL (6.4-8.2)
[2018-11-01] MEDS ORDERED: SODIUM CHLORIDE 0.9% 1,000 ML IV ONE (23:45)
[2018-11-02 02:52] VITALS: BP 146/96
== END 2018-11-02 02:55 | disposition home or self-care (01) ==
LOC: ER 21:15 → EEVIPCON 21:15 → ER 11-02 02:55
DX: R31.9 Hematuria, unspecified (principal); N13.30 Unspecified hydronephrosis; I11.0 Hypertensive heart disease with heart failure; I50.9 Heart failure, unspecified; I48.91 Unspecified atrial fibrillation; I25.2 Old myocardial infarction; E11.9 Type 2 diabetes mellitus without complications; Z95.0 Presence of cardiac pacemaker; Z90.49 Acquired absence of other specified parts of digestive tract; Z90.710 Acquired absence of both cervix and uterus; Z88.5 Allergy status to narcotic agent; Z88.8 Allergy status to other drugs, medicaments and biological substances; Z79.899 Other long term (current) drug therapy
CPT/HCPCS: 36415; 74176; 80053; 81001; 85025; 99284; J7030

== ENCOUNTER 2019-02-26 23:40 | Emergency (ER) | payer OTHER ==
[~2019-02-26] VITALS: Ht 162.6 cm; Wt 63.5 kg
[~2019-02-26 23:40] MED LIST changes: -DIL120C PO; +DILT120C12 PO; +FURO1TAB33 PO; -FURO20TA PO; -NIF30XLT PO; +NIFE30TA77 PO
[2019-02-27 01:05] LABS: Basophils # (auto) 0 uL; Eosinophils # (auto) 0 uL; Mean Corpuscular Hemoglobin 26.9 pg (28.0-32.0); Monocytes # (auto) 0.3 uL; White Blood Cell 4.2 10^3/uL (4.4-10.8)
[2019-02-27 01:06] LABS: Eosinophils % (auto) 1.1 % (0.0-7.0); Hematocrit 35.5 % (36.0-46.0); Hemoglobin 11.6 g/dL (12.2-16.2); Lymphocytes # (auto) 1.9 uL; Lymphocytes % (auto) 46.9 % (10.0-50.0); Mean Corpuscular Hgb Conc. 32.6 g/dL (32.0-36.0); Mean Corpuscular Volume 82.3 fL (80.0-100.0); Monocytes % (auto) 7.8 % (0.0-12.0); Neutrophils # (auto) 1.8 uL; Neutrophils % (auto) 43.2 % (37.0-80.0); Nucleated Red Blood Cells % 0.2 %; Platelet Count (auto) 200 10^3/uL (140-450); Red Blood Cells 4.31 10^6/uL (4.0-5.20); Red Cell Distribution Width 16.6 % (11.8-14.3)
[2019-02-27 01:19] LABS: INR 0.99 (0.9-1.15); Partial Thromboplastin Time 30.8 sec (23.64-32.05)
[2019-02-27 01:26] LABS: Albumin 3.7 g/dL (3.4-5.0); BUN/Creatinine Ratio 25.8; Calcium 8.4 mg/dL (8.5-10.1); Potassium 3.8 mmol/L (3.5-5.1)
[2019-02-27 01:30] LABS: Bilirubin, Total 0.4 mg/dL (0.2-1.0)
[2019-02-27 01:34] LABS: Urine Bacteria NONE SEEN /hpf (None Seen); Urine Blood Negative /uL (Negative); Urine Mucus FEW (None Seen); Urine Specific Gravity 1.019 (1.001-1.035); Urine WBC 10 /hpf (0 - 5)
[2019-02-27 04:00] VITALS: BP 143/79
== END 2019-02-27 03:53 ==
LOC: EDBD 23:40 → ER 23:42 → EEVIPCON 23:42 → ER 02-27 03:53
DX: I20.9 Angina pectoris, unspecified (principal); I48.91 Unspecified atrial fibrillation; I11.0 Hypertensive heart disease with heart failure; I50.9 Heart failure, unspecified; E11.9 Type 2 diabetes mellitus without complications; I25.2 Old myocardial infarction; Z95.0 Presence of cardiac pacemaker; Z88.5 Allergy status to narcotic agent; Z88.8 Allergy status to other drugs, medicaments and biological substances; Z79.899 Other long term (current) drug therapy
CPT/HCPCS: 36415; 71045; 80053; 81001; 83880; 84484; 85025; 85610; 85730; 93005; 94761

== ENCOUNTER 2019-03-28 19:03 | Inpatient (IN) | payer OTHER ==
[~2019-03-28] VITALS: Ht 165.1 cm; Wt 76.2 kg
[2019-03-28 19:26] LABS: Urine WBC None Seen /hpf (0 - 5)
[2019-03-28 19:36] LABS: Basophils # (auto) 0 uL; Basophils % (auto) 0.9 % (0.0-2.0); Eosinophils # (auto) 0 uL; Eosinophils % (auto) 0.3 % (0.0-7.0); Hematocrit 38.4 % (36.0-46.0); Hemoglobin 12.6 g/dL (12.2-16.2); Lymphocytes # (auto) 1.8 uL; Lymphocytes % (auto) 37.9 % (10.0-50.0); Mean Corpuscular Hemoglobin 27.1 pg (28.0-32.0); Mean Corpuscular Hgb Conc. 32.8 g/dL (32.0-36.0); Mean Corpuscular Volume 82.7 fL (80.0-100.0); Monocytes # (auto) 0.3 uL; Monocytes % (auto) 7.3 % (0.0-12.0); Neutrophils # (auto) 2.5 uL; Neutrophils % (auto) 53.6 % (37.0-80.0); Nucleated Red Blood Cells % 0.2 %; Platelet Count (auto) 201 10^3/uL (140-450); Red Blood Cells 4.64 10^6/uL (4.0-5.20); White Blood Cell 4.7 10^3/uL (4.4-10.8)
[2019-03-28 19:45] LABS: Urine Bacteria NONE SEEN /hpf (None Seen); Urine Blood Negative /uL (Negative); Urine Mucus FEW (None Seen); Urine Specific Gravity 1.007 (1.001-1.035)
[2019-03-28 19:55] LABS: Albumin 4.2 g/dL (3.4-5.0); Calcium 8.6 mg/dL (8.5-10.1); Magnesium 2.1 mg/dL (1.6-2.6); Potassium 3.3 mmol/L (3.5-5.1)
[2019-03-28 20:01] LABS: BUN/Creatinine Ratio 20.2; Bilirubin, Total 0.5 mg/dL (0.2-1.0)
[2019-03-28] MEDS ORDERED: NIFEdipine ER 30 MG TAB PO ONE (22:15)
[2019-03-28] MEDS ORDERED: NITROGLYCERIN 0.4 MG SL TAB SL PRN (22:45)
[2019-03-28] MEDS ORDERED: DEXTROSE (50%) 50ML SYRG IV PRN (22:45)
--- NOTE | 2019-03-29 01:00 | NUR ---
Telemetry admit from IZA[facility] MCKEON admitted to Telemetry unit after NO SBAR WAS received. Patient oriented to ULYSSES JACOBS, RN primary RN, unit, room, bed, and unit policies regarding patient care and visiting hours. Patient now on continuous telemetry monitoring, tele box # 9 and telemetry reading on arrival to unit is NSR at 61 bpm. Patient weighed by bedscale and encouraged to call if they need something. All questions and concerns addressed, patient verbalized understanding. Patient is A/O x4, on RA, skin is intact, IV to LFA 18g, bedside commode is at bedside per patient request. Call light is within reach, side rails up x2, bed is in lowest position. Guard is at bedside for safety.
[2019-03-29 05:00] VITALS: BP 160/89
--- NOTE | 2019-03-29 05:05 | NUR ---
Paged Dr. Juarez regarding patient's elevated blood pressure, there are no prn medications available.
--- NOTE | 2019-03-29 05:15 | NUR ---
Dr. Juarez called back. New order received for Clonidine 0.2 mg PO prn when SBP>160 or DBP >100, will carry out and continue to monitor.
[2019-03-29] MEDS ORDERED: cloNIDine HCL 0.1 MG TAB PO PRN (05:30)
--- NOTE | 2019-03-29 06:10 | NUR ---
Patient refused clonidine for her elevated blood pressure. She stated she has tried it before and has a rebound effect if she takes this medication. She states she will wait until 10:00 for her other daily blood pressure medications. BP was 160/89. Will continue to monitor and round as needed.
[2019-03-29] MEDS: InsuLIN REG 1unit/0.01ml Soln (100units/ml) SC SCH ×2 (06:22→17:00)
[2019-03-29] MEDS: LEVOTHYROXINE SODIUM 25 MCG TAB PO SCH (06:22)
[2019-03-29] MEDS: ACCU-CHEK COMFORT CURVE STRIP VI SCH ×2 (06:23→17:08)
[2019-03-29 08:00] VITALS: BP 157/79
[2019-03-29 09:00] VITALS: BP 157/79
[2019-03-29] MEDS: glipiZIDE 5 MG TAB PO SCH ×2 (10:00→21:57)
[2019-03-29] MEDS: DILTIAZEM HCL 120MG ER CAP PO SCH (10:13)
[2019-03-29] MEDS: FERROUS SULFATE 325 MG TAB PO SCH (10:14)
[2019-03-29] MEDS: ATENOLOL 25 MG TAB PO SCH (10:14)
[2019-03-29] MEDS: ISOSORBIDE MONONITRATE ER 60 MG TAB PO SCH (10:15)
[2019-03-29] MEDS: POTASSIUM CHL 20 Meq TABLET PO SCH (10:16)
[2019-03-29] MEDS: FUROSEMIDE 20 MG TAB PO SCH (10:16)
[2019-03-29] MEDS: MAGNESIUM OXIDE 400 MG TAB PO SCH (10:16)
[2019-03-29] MEDS: FOLIC ACID 1 MG TAB PO SCH (10:17)
[2019-03-29] MEDS: LISINOPRIL 10 MG TAB PO SCH (10:17)
[2019-03-29 13:00] VITALS: BP 130/74
[2019-03-29 17:00] VITALS: BP 109/67
--- NOTE | 2019-03-29 17:32 | NUR ---
Dr. Burris notified of the patient run of Afib, possibly V-Tach. obtained orders for potassium and digoxin.
[2019-03-29] MEDS ORDERED: POTASSIUM CHL 20 Meq TABLET PO ONE (17:45)
[2019-03-29] MEDS ORDERED: DIGOXIN (250MCG/ML) 2 ML AMPULE IV ONE ×2 (17:45→18:30)
[2019-03-29 22:00] VITALS: BP 121/68
--- NOTE | 2019-03-29 23:25 | NUR ---
Dr. Burris at bedside Updated patient on plan of care. He wants [employer] to interrogate patient's pacemaker. Patient verbalized understanding. No new orders received. Guards remain at bedside for safety, will continue to monitor.
[2019-03-30 05:00] VITALS: BP 122/77
[2019-03-30 05:44] LABS: Calcium 8.7 mg/dL (8.5-10.1); Potassium 3.9 mmol/L (3.5-5.1)
[2019-03-30 05:46] LABS: BUN/Creatinine Ratio 20.4
[2019-03-30] MEDS: LEVOTHYROXINE SODIUM 25 MCG TAB PO SCH (06:19)
[2019-03-30] MEDS: InsuLIN REG 1unit/0.01ml Soln (100units/ml) SC SCH ×2 (06:19→16:59)
[2019-03-30] MEDS: ACCU-CHEK COMFORT CURVE STRIP VI SCH ×2 (06:20→16:58)
[2019-03-30] MEDS ORDERED: IOHEXOL 350 MG/ML 100ML IJ ONE (06:29)
--- NOTE | 2019-03-30 07:17 | NUR ---
Opening Shift Note: Assumed care of patient, awake and alert. No S/S of distress/SOB or pain. Bed in lowest locked position, side rails up x 2, call light within reach. Guard at bedside. Instructed on POC and to call for assist PRN, will continue to monitor for changes Q1hr and PRN.
--- NOTE | 2019-03-30 07:24 | NUR ---
Patient off unit for CT scan
--- NOTE | 2019-03-30 07:44 | NUR ---
Patient back to unit from CT scan.
[2019-03-30 09:00] VITALS: BP 130/71
[2019-03-30] MEDS: glipiZIDE 5 MG TAB PO SCH ×2 (09:39→22:00)
[2019-03-30] MEDS: PANTOPRAZOLE 40 MG TAB PO SCH (09:53)
[2019-03-30] MEDS: ISOSORBIDE MONONITRATE ER 60 MG TAB PO SCH (09:54)
[2019-03-30] MEDS: FERROUS SULFATE 325 MG TAB PO SCH (09:54)
[2019-03-30] MEDS: LISINOPRIL 10 MG TAB PO SCH (09:55)
[2019-03-30] MEDS: DILTIAZEM HCL 120MG ER CAP PO SCH (09:56)
[2019-03-30] MEDS: FOLIC ACID 1 MG TAB PO SCH (09:56)
[2019-03-30] MEDS: FUROSEMIDE 20 MG TAB PO SCH (09:57)
[2019-03-30] MEDS: POTASSIUM CHL 20 Meq TABLET PO SCH (09:57)
[2019-03-30] MEDS: MAGNESIUM OXIDE 400 MG TAB PO SCH (09:57)
[2019-03-30] MEDS: ATENOLOL 25 MG TAB PO SCH (09:58)
[2019-03-30] MEDS: ENOXAPARIN SOD 40 MG/0.4 ML SYRINGE SC SCH (09:58)
--- NOTE | 2019-03-30 10:27 | NUR ---
Dr. Burris at bedside. Assessed patient, discussed POC with patient. Will continue to monitor patient.
[2019-03-30 13:00] VITALS: BP 126/76
[2019-03-30] MEDS ORDERED: MEXILETINE HYDROCHLORIDE 150 MG CAP PO SCH (14:00)
--- NOTE | 2019-03-30 14:47 | NUR ---
Patient stated chest pain 8/10 and pressure. Per patient "The new medication may have caused it." EKG performed at 1440. EKG read by Dr. Kirby. Per doctor "no acute changes, patient is atrial paced." Patient now states pain 5/10. Will continue to monitor patient.
[2019-03-30 17:00] VITALS: BP 152/88
--- NOTE | 2019-03-30 19:12 | NUR ---
Closing note: Patient sitting in bed. No S/S of pain, SOB or distress at this time. Care endorsed to NOC RN.
--- NOTE | 2019-03-30 20:00 | NUR ---
OPENING NOTE RECEIVED REPORT FROM DAYSHIFT RN. ASSUMING ROLE OF CARE OF PATIENT AT THIS TIME. PATIENT SHOWING NO SIGN OF DISTRESS, SHORTNESS OF BREATH, AND PATIENT DENIES ANY PAIN AT THIS TIME. PATIENT EDUCATED ON PLAN OF CARE FOR THE NIGHT AND PATIENT VERBALIZED UNDERSTANDING. BED LOWERED, CALL LIGHT WITHIN REACH, AND PATIENT WILL BE ROUNDED ON EVERY HOUR AND NEEDED.
--- NOTE | 2019-03-30 20:08 | NUR ---
IV removal IV DC'd with clean sterile technique, catheter fully intact. Pressure dressing applied to site. Patient tolerated well. IV insertion IV access obtained, via clean sterile technique by inserting 22 gauge catheter at LEFT HAND after 1 attempt(s). IV secured properly. No trauma to site. Patient tolerated well.
--- NOTE | 2019-03-30 21:35 | NUR ---
CONTACTED MD FUENTES PATIENT COMPLAINING OF CHEST PAIN. PER PATIENT, BELIEVES IT IS DUE TO MEDICATIONS. ORDERS RECEIVED. WILL CONTINUE TO MONITOR.
[2019-03-30 21:59] VITALS: BP 152/83
[2019-03-31 05:02] VITALS: BP 163/96
[2019-03-31] MEDS: ACCU-CHEK COMFORT CURVE STRIP VI SCH (06:12)
[2019-03-31] MEDS: InsuLIN REG 1unit/0.01ml Soln (100units/ml) SC SCH (06:12)
[2019-03-31] MEDS: LEVOTHYROXINE SODIUM 25 MCG TAB PO SCH (06:12)
--- NOTE | 2019-03-31 08:00 | NUR ---
Opening Shift Note: Assumed care of patient, awake and alert. No S/S of distress/SOB or pain. Bed in lowest locked position, side rails up x 2, call light in reach. Patient instructed on POC and to call for assist PRN, will continue to monitor for changes Q1hr and PRN.
[2019-03-31] MEDS ORDERED: MEX150C PO (08:37)
[2019-03-31 09:00] VITALS: BP 132/87
[2019-03-31] MEDS: FERROUS SULFATE 325 MG TAB PO SCH (09:51)
[2019-03-31] MEDS: ISOSORBIDE MONONITRATE ER 60 MG TAB PO SCH (09:52)
[2019-03-31] MEDS: LISINOPRIL 10 MG TAB PO SCH (09:53)
[2019-03-31] MEDS: PANTOPRAZOLE 40 MG TAB PO SCH (09:53)
[2019-03-31] MEDS: MAGNESIUM OXIDE 400 MG TAB PO SCH (09:53)
[2019-03-31] MEDS: FUROSEMIDE 20 MG TAB PO SCH (09:54)
[2019-03-31] MEDS: POTASSIUM CHL 20 Meq TABLET PO SCH (09:54)
[2019-03-31] MEDS: DILTIAZEM HCL 120MG ER CAP PO SCH (09:55)
[2019-03-31] MEDS: FOLIC ACID 1 MG TAB PO SCH (09:55)
[2019-03-31] MEDS: ATENOLOL 25 MG TAB PO SCH (09:56)
[2019-03-31] MEDS: ENOXAPARIN SOD 40 MG/0.4 ML SYRINGE SC SCH (09:56)
[2019-03-31] MEDS: glipiZIDE 5 MG TAB PO SCH (10:00)
[2019-03-31 12:10] VITALS: BP 132/87
--- NOTE | 2019-03-31 12:29 | NUR ---
Discharge instructions given as ordered. Encourage to follow up with PMD as instructed. All questions and concerns addressed. Patient verbalized understanding. Medication reconciliation form completed and copy given to patient. IV removed with catheter intact, pressure dressing applied. Telemetry unit returned to ICU. Patient taken to vehicle via wheelchair with care home personnel. No distress noted at time of departure.
[2019-03-31 13:00] VITALS: BP 131/95
== END 2019-03-31 12:26 | DRG 308 ==
LOC: ER 19:03 → EDBD 19:03 → EEVIPCON 19:03 → EDSEX 19:03 → TELE 19:04 → TELE-EAST 03-29 01:03
PROVIDERS: ADMIT Internal Medicine; ATTEND Internal Medicine
PROC: 4B02XSZ Measurement of Cardiac Pacemaker, External Approach (ICD-10-PCS; principal; 2019-03-31)
DX: I47.2 Ventricular tachycardia (principal); I50.41 Acute combined systolic (congestive) and diastolic (congestive) heart failure; I11.0 Hypertensive heart disease with heart failure; R07.89 Other chest pain; E11.9 Type 2 diabetes mellitus without complications; E03.9 Hypothyroidism, unspecified; I20.9 Angina pectoris, unspecified; I48.91 Unspecified atrial fibrillation; Z79.899 Other long term (current) drug therapy; Z82.49 Family history of ischemic heart disease and other diseases of the circulatory system; Z90.710 Acquired absence of both cervix and uterus; Z95.0 Presence of cardiac pacemaker; Z83.3 Family history of diabetes mellitus; Z88.5 Allergy status to narcotic agent; Z88.7 Allergy status to serum and vaccine; Z88.8 Allergy status to other drugs, medicaments and biological substances; Z90.49 Acquired absence of other specified parts of digestive tract
CPT/HCPCS: 36415; 71045; 71275; 80048; 80053; 81001; 82962; 83735; 83880; 84443; 84484; 85025; 85379; 87081; 93005; 96374; G0378